=== PATIENT | male | born 1985 | race Caucasian/White ===

== ENCOUNTER 2017-05-02 16:40 | Emergency (ER) | payer MEDICAID | END 2017-05-02 18:53 | disposition left against medical advice (07) | LOC: ER 16:52 | DX: Z53.21 Procedure and treatment not carried out due to patient leaving prior to being seen by health care provider (principal) ==

== ENCOUNTER 2024-02-12 14:37 | Emergency (ER) | payer MEDICAID ==
[~2024-02-12] VITALS: Ht 188 cm; Wt 104.8 kg
[2024-02-12] MEDS ORDERED: HYDROCODONE/APAP 5/325MG TABLET ONE (17:12)
[2024-02-12] MEDS ORDERED: TDAP [DIPH/PERTUSSIS/TET] 0.5 ML VIAL IM ONE (17:12)
[2024-02-12] MEDS: TDAP [DIPH/PERTUSSIS/TET] 0.5 ML VIAL IM ONE (17:17)
[2024-02-12] MEDS: HYDROCODONE/APAP 5/325MG TABLET PO ONE (17:23)
[2024-02-12] MEDS ORDERED: LIDOCAINE HCL/MPF 1% 30 ML VIAL IJ ONE (17:50)
[2024-02-12] MEDS ORDERED: BACI30OI9 TP (19:13)
[2024-02-12] MEDS ORDERED: IBUP-1955 PO (19:13)
[2024-02-12] MEDS ORDERED: HYDR-3973 PO (19:13)
[2024-02-12] MEDS ORDERED: ACET-2605 PO (19:13)
[2024-02-12] MEDS ORDERED: SULF1TAB48 PO (19:15)
[2024-02-12 19:36] VITALS: BP 128/60; TEMP 98.5; O2SAT 100
== END 2024-02-12 19:37 | disposition home or self-care (01) ==
LOC: ER 14:42
DX: S62.661B Nondisplaced fracture of distal phalanx of left index finger, initial encounter for open fracture (principal); S60.122A Contusion of left index finger with damage to nail, initial encounter; K21.9 Gastro-esophageal reflux disease without esophagitis; Z90.89 Acquired absence of other organs; Z60.2 Problems related to living alone; X58.XXXA Exposure to other specified factors, initial encounter; Y93.B3 Activity, free weights; Y92.39 Other specified sports and athletic area as the place of occurrence of the external cause; Y99.8 Other external cause status
CPT/HCPCS: 11740; 12002; 73130; 90471; 90715; 99284; A6403; J3490